=== PATIENT | male | born 2000 | race Hispanic/Latino ===

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

== ENCOUNTER 2023-12-08 14:42 | Emergency (ER) | payer BC ==
[2023-12-08 15:26] LABS: #Basophils 0.05 10x3/uL (0.0-0.2); %Basophils 0.6 % (0.0-1.0); %Eosinophils 2.6 % (0.0-10.0); %Lymphocytes 41.4 % (21.0-51.0); %Monocytes 7.8 % (0.0-10.0); %Neutrophils 47.3 % (42.0-75.0); Hematocrit 54.9 % (42.0-52.0); Hemoglobin 19.6 g/dL (14.0-18.0); Mean Corpuscular HGB CONC 35.7 g/dL (32.0-36.0); Mean Corpuscular Hemoglobin 30.2 pg (27.0-31.0); Mean Corpuscular Volume 84.6 fL (78.0-98.0); Platelet Count 227 10x3/uL (130-400); RBC Distribution Width 11.7 % (11.5-14.5); Red Blood Cell (RBC) Count 6.49 mill/uL (4.70-6.10)
[2023-12-08 15:48] LABS: ALT (SGPT) 20 U/L (8-55); AST (SGOT) 21 U/L (5-34); Albumin 4.3 g/dL (3.5-5.0); Alkaline Phosphatase 76 U/L (40-110); Anion Gap 12 mmol/L (10-20); BUN (Urea Nitrogen) 13 mg/dL (8.9-20.6); Bilirubin, Total 0.6 mg/dL (0.2-1.2); Calc. Creatinine Clearance 0 mL/min (70-130); Calcium 10.2 mg/dL (7.8-10.44); Carbon Dioxide 27 mmol/L (22-29); Chloride 102 mmol/L (98-107); Estimated GFR 105; Globulin 4.1 g/dL (2.4-3.5); Glucose 94 mg/dL (70-105); Potassium 4.3 mmol/L (3.5-5.1); Protein, Total 8.4 g/dL (6.0-8.3); Sodium 137 mmol/L (136-145)
[2023-12-08] MEDS ORDERED: Hydrocortisone Sod Succ/PF 100 mg/2 ml Vial ONE (16:51)
[2023-12-09] MEDS ORDERED: Hydrocortisone 10 mg Tablet PO SCH (08:15)
== END 2023-12-09 13:20 | disposition home or self-care (01) ==
LOC: ERS 14:42
DX: E23.6 Other disorders of pituitary gland (principal); D58.2 Other hemoglobinopathies; R94.7 Abnormal results of other endocrine function studies
CPT/HCPCS: 36415; 71046; 80053; 85025; 96374; J1720

== ENCOUNTER 2023-12-11 12:46 | Outpatient (CLI) | payer BC ==
[~2023-12-11 12:46] MED LIST: Magnevist 469MG/ML 20 ML VIAL ONE
== END 2023-12-11 12:47 | disposition home or self-care (01) ==
LOC: MRI 12:46
PROVIDERS: ATTEND Internal Medicine
DX: E23.6 Other disorders of pituitary gland (principal)
CPT/HCPCS: 70553; 76376